=== PATIENT | female | born 1965 | race Caucasian/White ===

== ENCOUNTER 2019-02-22 19:51 | Emergency (ER) | payer OTHER ==
[~2019-02-22] VITALS: Ht 162.6 cm; Wt 59.0 kg
[2019-02-22] MEDS ORDERED: VOLTAREN GEL 1100 G2 TOP (22:12)
[2019-02-22 22:45] VITALS: BP 124/74
== END 2019-02-22 22:50 | disposition home or self-care (01) ==
LOC: ER 19:51
DX: M54.5 Low back pain (principal); M25.531 Pain in right wrist; Z88.0 Allergy status to penicillin; V49.09XA Driver injured in collision with other motor vehicles in nontraffic accident, initial encounter; Y93.89 Activity, other specified; Y92.89 Other specified places as the place of occurrence of the external cause; Y99.8 Other external cause status